=== PATIENT | male | born 1955 | race Caucasian/White ===

== ENCOUNTER 2018-02-11 10:48 | Inpatient (IN) | payer OTHER ==
[~2018-02-11] VITALS: Ht 172.7 cm; Wt 110.0 kg
[~2018-02-11 10:48] MED LIST: FLO0.4C PO; IBUP-1986 PO; LACT1CAP65 PO; LISI-604 PO; MULT-38 PO; POLY119P2 PO
[2018-02-11] MEDS: diatr meglu/diatrizoate 30ml oral sol.-(3 dose) bottle PO SCH ×3 (11:40→12:30)
[2018-02-11 12:07] LABS: BASOPHILS % (AUTO) 0 % (0-1); EOSINOPHILS % (AUTO) 0 % (0-6); HEMATOCRIT 44.5 % (42.0-52.0); HEMOGLOBIN 14.2 g/dl (14.0-17.9); LYMPHOCYTES # (AUTO) 0.6 X10'3 (1.1-4.8); LYMPHOCYTES % (AUTO) 4.2 % (21-51); MEAN CORPUSCULAR HEMOGLOBIN 28.6 PG (27.0-31.0); MEAN CORPUSCULAR HGB CONC 31.9 % (33.0-36.5); MEAN CORPUSCULAR VOLUME 89.5 FL (78-98); MEAN PLATELET VOLUME 10.4 FL (7.4-10.4); MONOCYTES # (AUTO) 1.5 X10'3 (0-0.9); MONOCYTES % (AUTO) 11.2 % (2-12); NEUTROPHILS # (AUTO) 11.7 X10'3 (1.8-7.7); NEUTROPHILS % (AUTO) 84.6 % (42-75); PLATELET COUNT 221 X10'3 (140-440); RED BLOOD COUNT 4.98 X10'6 (4.70-6.10); RED CELL DISTRIBUTION WIDTH 15.2 % (11.5-14.5); WHITE BLOOD COUNT 13.9 X10'3 (4.5-11.0)
[2018-02-11 12:23] LABS: INR 1.1 INR; PARTIAL THROMBOPLASTIN TIME 29 SECONDS (22-32); PROTHROMBIN TIME 11.4 SECONDS (9.0-12.0)
[2018-02-11 12:31] LABS: ALANINE AMINOTRANSFERASE 24 U/L (12-78); ALBUMIN 2.4 G/DL (3.4-5.0); ALBUMIN/GLOBULIN RATIO 0.5 (1.1-1.5); ALKALINE PHOSPHATASE 99 IU/L (46-116); ANION GAP 9 (8-16); ASPARTATE AMINO TRANSFERASE 19 U/L (10-37); BILIRUBIN,TOTAL 0.7 MG/DL (0.1-1.0); BLOOD UREA NITROGEN 22 MG/DL (7-18); BUN/CREATININE RATIO 16.2 (5.4-32.0); CALCIUM 9.3 MG/DL (8.5-10.1); CHLORIDE 102 MMOL/L (99-107); CREATININE 1.36 MG/DL (0.60-1.10); GLUCOSE 135 MG/DL (70-104); MAGNESIUM 2.1 MG/DL (1.5-2.4); POTASSIUM 3.3 MMOL/L (3.5-5.1); SODIUM 139 MMOL/L (135-145); eGFR 53 ML/MIN
[2018-02-11] MEDS ORDERED: iohexol 300mg/ml 100ml inj. ONE (12:39)
[2018-02-11] MEDS ORDERED: diatrozoate meglu/diatrozoate sod (37% iodine) 120ML oral solution ONE (12:39)
[2018-02-11] MEDS ORDERED: CefTRIAXone 2gm/D5W 50ml 50 ML IV ONE (13:15)
[2018-02-11] MEDS ORDERED: normal saline 1000ML IV soln IV ONE (13:15)
[2018-02-11 13:32] LABS: CLARITY,URINE SLIGHTLY CLOUDY (Clear); COLOR,URINE YELLOW (Yellow); GLUCOSE, URINE NEGATIVE (Neg); KETONES,URINE NEGATIVE (Neg); LEUKOCYTE ESTERASE ,URINE MODERATE (Neg); NITRITES, URINE NEGATIVE (Neg); OCCULT BLOOD,URINE MODERATE (Neg); PROTEIN,URINE 100 mg/dl (Neg)
[2018-02-11 13:41] LABS: UA COLLECTION TYPE CLN CATCH MIDSTREAM
[2018-02-11 13:45] LABS: MUCUS STRANDS FEW /LPF (Neg); SQUAMOUS EPITHELIAL CELL,UR MODERATE /LPF (FEW); WBC,URINE 50-100 /HPF (0-4)
[2018-02-11 13:46] LABS: BACTERIA,URINE FEW /HPF (Neg)
[2018-02-11] MEDS ORDERED: acetaminophen 325mg tablet PO PRN ×2 (14:10)
[2018-02-11] MEDS ORDERED: magnesium 4gm in 100ml NS 100 ML IV PRN (14:10)
[2018-02-11] MEDS ORDERED: potassium Cl 20 mEq SR tablet PO PRN (14:10)
[2018-02-11] MEDS ORDERED: magnesium Cl slow-release 64mg tablet PO PRN (14:10)
[2018-02-11] MEDS ORDERED: CefTRIAXone/D5W-Rocephin 1gm 50 ML IV SCH (14:10)
[2018-02-11] MEDS ORDERED: magnesium hydroxide 30ml (MOM) UD suspension PO PRN (14:10)
[2018-02-11] MEDS ORDERED: ondansetron/PF 4mg/2ml inj IV PRN (14:10)
[2018-02-11] MEDS ORDERED: potassium Cl 40MEQ/NS 500ml 500 ML IV PRN ×2 (14:10)
[2018-02-11] MEDS ORDERED: magnesium 1gm/100ml D5W IVPB 100 ML IV PRN (14:10)
[2018-02-11] MEDS ORDERED: mag hydrox/Alum hydrox/simeth 30ml oral suspension PO PRN (14:10)
[2018-02-11] MEDS: normal saline 1000ml 1,000 ML IV SCH ×2 (15:28→22:57)
[2018-02-11] MEDS: heparin, porcine 5000 units/ml vial SQ SCH (20:10)
[2018-02-11] MEDS ORDERED: temazepam 15mg capsule PO PRN (21:00)
[2018-02-11 23:00] VITALS: BP 150/113
[2018-02-12 05:44] LABS: BASOPHILS % (AUTO) 0 % (0-1); EOSINOPHILS # (AUTO) 0.2 X10'3 (0-0.9); EOSINOPHILS % (AUTO) 1.7 % (0-6); HEMATOCRIT 37.8 % (42.0-52.0); HEMOGLOBIN 12.2 g/dl (14.0-17.9); LYMPHOCYTES # (AUTO) 0.9 X10'3 (1.1-4.8); LYMPHOCYTES % (AUTO) 7.6 % (21-51); MEAN CORPUSCULAR HEMOGLOBIN 28.7 PG (27.0-31.0); MEAN CORPUSCULAR HGB CONC 32.4 % (33.0-36.5); MEAN CORPUSCULAR VOLUME 88.5 FL (78-98); MEAN PLATELET VOLUME 10.8 FL (7.4-10.4); MONOCYTES # (AUTO) 1.4 X10'3 (0-0.9); MONOCYTES % (AUTO) 11.8 % (2-12); NEUTROPHILS # (AUTO) 9.4 X10'3 (1.8-7.7); NEUTROPHILS % (AUTO) 78.9 % (42-75); PLATELET COUNT 191 X10'3 (140-440); RED BLOOD COUNT 4.27 X10'6 (4.70-6.10); RED CELL DISTRIBUTION WIDTH 15.2 % (11.5-14.5); WHITE BLOOD COUNT 11.9 X10'3 (4.5-11.0)
[2018-02-12 06:05] LABS: ALANINE AMINOTRANSFERASE 29 U/L (12-78); ALBUMIN 1.9 G/DL (3.4-5.0); ALBUMIN/GLOBULIN RATIO 0.5 (1.1-1.5); ALKALINE PHOSPHATASE 86 IU/L (46-116); ANION GAP 7 (8-16); ASPARTATE AMINO TRANSFERASE 19 U/L (10-37); BILIRUBIN,TOTAL 0.5 MG/DL (0.1-1.0); BLOOD UREA NITROGEN 19 MG/DL (7-18); BUN/CREATININE RATIO 17.4 (5.4-32.0); CALCIUM 8.4 MG/DL (8.5-10.1); CHLORIDE 106 MMOL/L (99-107); CHOL/HDL RATIO 6.5 (0.00-4.99); CHOLESTEROL 111 MG/DL (0-200); CREATININE 1.09 MG/DL (0.60-1.10); GLUCOSE 151 MG/DL (70-104); HDL CHOLESTEROL 17 MG/DL (35-60); LDL CHOLESTEROL 78 MG/DL (50-100); MAGNESIUM 1.7 MG/DL (1.5-2.4); POTASSIUM 3.3 MMOL/L (3.5-5.1); SODIUM 139 MMOL/L (135-145); TOTAL PROTEIN 5.9 G/DL (6.4-8.2); TRIGLYCERIDES 70 MG/DL (20-135); eGFR 69 ML/MIN
[2018-02-12 07:29] LABS: LARGE PLATELETS FEW; PLATELET ESTIMATE NORMAL
[2018-02-12] MEDS: potassium Cl 20 mEq SR tablet PO PRN ×3 (07:35→16:16)
[2018-02-12] MEDS: heparin, porcine 5000 units/ml vial SQ SCH ×2 (07:35→19:10)
[2018-02-12 07:46] VITALS: BP 120/72
[2018-02-12] MEDS ORDERED: CefTRIAXone/D5W-Rocephin 1gm 50 ML IV SCH (08:00)
[2018-02-12] MEDS ORDERED: K and/or MAG REPLACEMENT MC SCH (08:00)
[2018-02-12] MEDS ORDERED: levoFLOXACIN-Levaquin 250mg/D5 50 ML IV SCH (08:00)
[2018-02-12] MEDS: normal saline 1000ml 1,000 ML IV SCH ×2 (09:33→20:21)
[2018-02-12 11:55] VITALS: BP 122/64
[2018-02-12 18:00] VITALS: BP 151/103
[2018-02-12 18:13] LABS: C DIFF ANTIGEN NEGATIVE (NEGATIVE); C DIFF SPECIMEN=DIARRHEA? ACCEPTABLE; C DIFFICILE TOXINS A&B NEGATIVE (Neg)
[2018-02-12] MEDS ORDERED: vancomycin/NS 1 GM ADD-VANTAGE 250 ML IV ONE (18:40)
[2018-02-12] MEDS ORDERED: cefepime 1GM/NS ADD-VANTAGE 100 ML IV ONE (18:40)
[2018-02-12] MEDS ORDERED: vancomycin/NS 1 GM ADD-VANTAGE 250 ML X 1 DOSE IV ONE ×2 (20:30→22:00)
[2018-02-13] VITALS: BP 140/80
[2018-02-13] MEDS: normal saline 1000ml 1,000 ML IV SCH (06:07)
[2018-02-13 07:03] LABS: BASOPHILS % (AUTO) 0.4 % (0-1); EOSINOPHILS # (AUTO) 0.4 X10'3 (0-0.9); EOSINOPHILS % (AUTO) 3.6 % (0-6); HEMATOCRIT 38.4 % (42.0-52.0); HEMOGLOBIN 12.4 g/dl (14.0-17.9); LYMPHOCYTES % (AUTO) 9.6 % (21-51); MEAN CORPUSCULAR HEMOGLOBIN 28.5 PG (27.0-31.0); MEAN CORPUSCULAR HGB CONC 32.2 % (33.0-36.5); MEAN CORPUSCULAR VOLUME 88.5 FL (78-98); MEAN PLATELET VOLUME 11.2 FL (7.4-10.4); MONOCYTES # (AUTO) 0.9 X10'3 (0-0.9); MONOCYTES % (AUTO) 8.3 % (2-12); NEUTROPHILS # (AUTO) 8.5 X10'3 (1.8-7.7); NEUTROPHILS % (AUTO) 78.1 % (42-75); PLATELET COUNT 215 X10'3 (140-440); RED BLOOD COUNT 4.34 X10'6 (4.70-6.10); RED CELL DISTRIBUTION WIDTH 15.1 % (11.5-14.5); WHITE BLOOD COUNT 10.8 X10'3 (4.5-11.0)
[2018-02-13 07:27] LABS: ALANINE AMINOTRANSFERASE 26 U/L (12-78); ALBUMIN/GLOBULIN RATIO 0.5 (1.1-1.5); ALKALINE PHOSPHATASE 121 IU/L (46-116); ANION GAP 10 (8-16); ASPARTATE AMINO TRANSFERASE 22 U/L (10-37); BILIRUBIN,TOTAL 0.4 MG/DL (0.1-1.0); BLOOD UREA NITROGEN 19 MG/DL (7-18); BUN/CREATININE RATIO 19.8 (5.4-32.0); CALCIUM 8.6 MG/DL (8.5-10.1); CHLORIDE 109 MMOL/L (99-107); CREATININE 0.96 MG/DL (0.60-1.10); GLUCOSE 113 MG/DL (70-104); MAGNESIUM 1.9 MG/DL (1.5-2.4); POTASSIUM 3.7 MMOL/L (3.5-5.1); SODIUM 143 MMOL/L (135-145); TOTAL CARBON DIOXIDE 23.9 MMOL/L (24-32); TOTAL PROTEIN 6.1 G/DL (6.4-8.2); eGFR 80 ML/MIN
[2018-02-13 08:45] LABS: LARGE PLATELETS FEW; PLATELET ESTIMATE NORMAL
== END 2018-02-13 07:10 | disposition left against medical advice (07) | DRG 871 ==
LOC: ER 10:51 → EEVIPCON 14:07 → ED HOLD 14:07 → EDBEDREQ 20:26 → SUR 3N 22:40
PROVIDERS: ADMIT Family Medicine; ATTEND Family Medicine
PROC: BW211ZZ Computerized Tomography (CT Scan) of Abdomen and Pelvis using Low Osmolar Contrast (ICD-10-PCS; principal; 2018-02-11)
DX: A41.9 Sepsis, unspecified organism (principal); J18.1 Lobar pneumonia, unspecified organism; N13.6 Pyonephrosis; N17.9 Acute kidney failure, unspecified; Z53.21 Procedure and treatment not carried out due to patient leaving prior to being seen by health care provider; N21.0 Calculus in bladder; E87.6 Hypokalemia; I25.10 Atherosclerotic heart disease of native coronary artery without angina pectoris; Z88.1 Allergy status to other antibiotic agents; Z79.899 Other long term (current) drug therapy; Z91.19 Patient's noncompliance with other medical treatment and regimen; Z56.0 Unemployment, unspecified; Z87.442 Personal history of urinary calculi
CPT/HCPCS: 36415; 71045; 74177; 80053; 80061; 81001; 83036; 83605; 83735; 84145; 85025; 85610; 85730; 86885; 86900; 86901; 87040; 87070; 87077; 87088; 87186; 87324; 87449; 93005; 96365; 99285; G0378; J0692; J0696; J1644; J3370; J7030; Q9963; Q9967

== ENCOUNTER 2018-03-06 10:35 | Emergency (ER) | payer MEDICAID, OTHER ==
[~2018-03-06] VITALS: Ht 172.7 cm; Wt 104.0 kg
[~2018-03-06 10:35] MED LIST changes: -FLO0.4C PO; -LISI-604 PO
[2018-03-06] MEDS ORDERED: methylPREDNISolone sod succ 125mg/2ml vial IV ONE (11:40)
[2018-03-06] MEDS ORDERED: ipratropium/albuterol 3ml nebule NEB ONE (11:40)
[2018-03-06 11:52] LABS: BASOPHILS % (AUTO) 0.3 % (0-1); EOSINOPHILS # (AUTO) 0.1 X10'3 (0-0.9); EOSINOPHILS % (AUTO) 1.2 % (0-6); HEMATOCRIT 46.3 % (42.0-52.0); HEMOGLOBIN 15.1 g/dl (14.0-17.9); LYMPHOCYTES # (AUTO) 0.8 X10'3 (1.1-4.8); LYMPHOCYTES % (AUTO) 10.8 % (21-51); MEAN CORPUSCULAR HEMOGLOBIN 28.8 PG (27.0-31.0); MEAN CORPUSCULAR HGB CONC 32.6 % (33.0-36.5); MEAN CORPUSCULAR VOLUME 88.3 FL (78-98); MEAN PLATELET VOLUME 10.1 FL (7.4-10.4); MONOCYTES # (AUTO) 0.4 X10'3 (0-0.9); MONOCYTES % (AUTO) 5.2 % (2-12); NEUTROPHILS % (AUTO) 82.5 % (42-75); PLATELET COUNT 206 X10'3 (140-440); RED BLOOD COUNT 5.24 X10'6 (4.70-6.10); WHITE BLOOD COUNT 7.3 X10'3 (4.5-11.0)
[2018-03-06 12:15] LABS: ALANINE AMINOTRANSFERASE 22 U/L (12-78); ALBUMIN/GLOBULIN RATIO 0.7 (1.1-1.5); ALKALINE PHOSPHATASE 84 IU/L (46-116); ANION GAP 8 (8-16); ASPARTATE AMINO TRANSFERASE 26 U/L (10-37); BILIRUBIN,TOTAL 0.5 MG/DL (0.1-1.0); BLOOD UREA NITROGEN 22 MG/DL (7-18); BUN/CREATININE RATIO 19.8 (5.4-32.0); CALCIUM 9.2 MG/DL (8.5-10.1); CHLORIDE 99 MMOL/L (99-107); CREATININE 1.11 MG/DL (0.60-1.10); GLUCOSE 117 MG/DL (70-104); POTASSIUM 3.4 MMOL/L (3.5-5.1); SODIUM 135 MMOL/L (135-145); TOTAL CARBON DIOXIDE 27.8 MMOL/L (24-32); TOTAL PROTEIN 7.4 G/DL (6.4-8.2); eGFR 68 ML/MIN
[2018-03-06 12:21] LABS: MAGNESIUM 1.7 MG/DL (1.5-2.4)
[2018-03-06] MEDS ORDERED: POTA20TA19 PO (12:41)
[2018-03-06] MEDS ORDERED: DOXY100C43 PO (12:41)
[2018-03-06] MEDS ORDERED: FURO40TA4 PO (12:41)
[2018-03-06] MEDS ORDERED: PRED20TA PO (12:41)
[2018-03-06] MEDS ORDERED: furosemide 10 MG/1 ML 10ml inj IV ONE (12:45)
[2018-03-06] MEDS ORDERED: CefTRIAXone 2gm/D5W 50ml 50 ML IV ONE (12:45)
[2018-03-06] MEDS ORDERED: furosemide 40mg/4ml inj IV ONE (12:45)
[2018-03-06] MEDS ORDERED: potassium Cl 20 mEq SR tablet PO STA (13:06)
[2018-03-06 13:43] VITALS: BP 127/80
== END 2018-03-06 13:45 | disposition home or self-care (01) ==
LOC: ER 10:36
DX: J40 Bronchitis, not specified as acute or chronic (principal); I25.10 Atherosclerotic heart disease of native coronary artery without angina pectoris; Z56.0 Unemployment, unspecified; Z98.890 Other specified postprocedural states; Z88.1 Allergy status to other antibiotic agents; Z79.899 Other long term (current) drug therapy
CPT/HCPCS: 36415; 71045; 80053; 83605; 83735; 83880; 84145; 84484; 85025; 87040; 93005; 94640; 94760; 96365; 96375; 99284; J0696; J1940; J2930

== ENCOUNTER 2018-05-19 04:12 | Inpatient (IN) | payer MEDICAID, OTHER ==
[~2018-05-19] VITALS: Ht 172.7 cm; Wt 101.5 kg
[~2018-05-19 04:12] MED LIST changes: +FURO40TA4 PO
[2018-05-19 04:40] LABS: BASOPHILS % (AUTO) 0.5 % (0-1); EOSINOPHILS # (AUTO) 0.5 X10'3 (0-0.9); EOSINOPHILS % (AUTO) 5.5 % (0-6); HEMATOCRIT 37.3 % (42.0-52.0); LYMPHOCYTES # (AUTO) 1.2 X10'3 (1.1-4.8); MEAN CORPUSCULAR HEMOGLOBIN 27.6 PG (27.0-31.0); MEAN CORPUSCULAR HGB CONC 32.2 g/dL (33.0-36.5); MEAN CORPUSCULAR VOLUME 85.8 FL (78-98); MEAN PLATELET VOLUME 8.9 FL (7.4-10.4); MONOCYTES # (AUTO) 0.8 X10'3 (0-0.9); MONOCYTES % (AUTO) 8.5 % (2-12); NEUTROPHILS # (AUTO) 6.5 X10'3 (1.8-7.7); NEUTROPHILS % (AUTO) 72.5 % (42-75); PLATELET COUNT 255 X10'3 (140-440); RED BLOOD COUNT 4.34 X10'6 (4.70-6.10); RED CELL DISTRIBUTION WIDTH 16.7 % (11.5-14.5); WHITE BLOOD COUNT 8.9 X10'3 (4.5-11.0)
[2018-05-19] MEDS ORDERED: ipratropium/albuterol 3ml nebule NEB ONE (04:50)
[2018-05-19 04:52] LABS: ALANINE AMINOTRANSFERASE 28 U/L (12-78); ALBUMIN 2.7 G/DL (3.4-5.0); ALBUMIN/GLOBULIN RATIO 0.7 (1.1-1.5); ALKALINE PHOSPHATASE 84 IU/L (46-116); ANION GAP 7 (8-16); ASPARTATE AMINO TRANSFERASE 26 U/L (10-37); BILIRUBIN,TOTAL 0.6 MG/DL (0.1-1.0); BLOOD UREA NITROGEN 31 MG/DL (7-18); BUN/CREATININE RATIO 22.1 (5.4-32.0); CALCIUM 8.8 MG/DL (8.5-10.1); CHLORIDE 106 MMOL/L (99-107); GLUCOSE 159 MG/DL (70-104); POTASSIUM 3.5 MMOL/L (3.5-5.1); SODIUM 139 MMOL/L (135-145); TOTAL CARBON DIOXIDE 25.8 MMOL/L (24-32); TOTAL PROTEIN 6.4 G/DL (6.4-8.2); eGFR 52 ML/MIN
[2018-05-19 05:05] LABS: TROPONIN I 0.08 NG/ML (0.0-0.05)
[2018-05-19 05:24] LABS: CLARITY,URINE SLIGHTLY CLOUDY (Clear); COLOR,URINE Yellow (Yellow); GLUCOSE, URINE Negative (Neg); KETONES,URINE Negative (Neg); PROTEIN,URINE 100 mg/dl (Neg); UA COLLECTION TYPE CLN CATCH MIDSTREAM
[2018-05-19 05:25] LABS: LEUKOCYTE ESTERASE ,URINE LARGE (Neg); NITRITES, URINE NEGATIVE (Neg); OCCULT BLOOD,URINE MODERATE (Neg); UROBILINOGEN,URINE 0.2 E.U/dL (0.2-1.0)
[2018-05-19 05:34] LABS: BACTERIA,URINE 2+ /HPF (Neg); MUCUS STRANDS NONE SEEN /LPF (Neg); SQUAMOUS EPITHELIAL CELL,UR MODERATE /LPF (FEW); WBC,URINE TNTC /HPF (0-4)
[2018-05-19] MEDS ORDERED: aspirin 81mg tab.chew PO ONE (05:35)
[2018-05-19] MEDS ORDERED: CefTRIAXone 2gm/D5W 50ml 50 ML IV ONE (05:35)
--- NOTE | 2018-05-19 05:38 | NUR ---
Dr. Bartlett notified of elevated troponin level.
[2018-05-19] MEDS ORDERED: heparin 25,000 UNIT/250ml bag 250 ML IV SCH ×2 (05:58→07:18)
[2018-05-19] MEDS ORDERED: heparin 10,000 units/1 ML INJ IV ONE ×2 (06:00→07:20)
[2018-05-19] MEDS ORDERED: heparin 10,000 units/1 ML INJ IV PRN ×2 (06:00→07:20)
--- NOTE | 2018-05-19 06:01 | NUR ---
Patient and updated on POC.
--- NOTE | 2018-05-19 06:02 | NUR ---
Heparin drip order noted. No PT/PTT available. Lab contacted to run blue top that was previously collected and will initiate as soon as lab values are available.
[2018-05-19 06:10] LABS: INR 1.2 INR; PARTIAL THROMBOPLASTIN TIME 25 SECONDS (22-32); PROTHROMBIN TIME 11.8 SECONDS (9.0-12.0)
[2018-05-19] MEDS ORDERED: NO HOME MEDS (06:23)
--- NOTE | 2018-05-19 06:51 | NUR ---
having trouble with IV, new IV needs to be started and pt is a hard stick. second nurse is trying now. heparin drip is can not be started until new IV is started
--- NOTE | 2018-05-19 07:03 | NUR ---
NEW IV STARTED, HEPARIN DRIP STARTED
[2018-05-19] MEDS ORDERED: magnesium Cl slow-release 64mg tablet PO PRN (07:20)
[2018-05-19] MEDS ORDERED: mag hydrox/Alum hydrox/simeth 30ml oral suspension PO PRN (07:20)
[2018-05-19] MEDS ORDERED: potassium Cl 40MEQ/NS 500ml 500 ML IV PRN ×2 (07:20)
[2018-05-19] MEDS ORDERED: regadenoson 0.4mg/5ml syringe IV ONE ×2 (07:20→09:32)
[2018-05-19] MEDS ORDERED: magnesium hydroxide 30ml (MOM) UD suspension PO PRN (07:20)
[2018-05-19] MEDS ORDERED: potassium Cl 20 mEq SR tablet PO PRN ×2 (07:20)
[2018-05-19] MEDS ORDERED: ondansetron/PF 4mg/2ml inj IV PRN (07:20)
[2018-05-19] MEDS ORDERED: morphine 4 MG/ML inj SYRINge IV PRN ×2 (07:20)
[2018-05-19] MEDS ORDERED: aminophylline 250mg/10ml inj. IV PRN (07:20)
[2018-05-19] MEDS ORDERED: nitroGLYCERIN 0.4mg SUBLingual tab SL PRN ×2 (07:20)
[2018-05-19] MEDS ORDERED: metoprolol tartrate 1mg/ml inj IV PRN (07:20)
[2018-05-19] MEDS ORDERED: magnesium 4gm in 100ml NS 100 ML IV PRN (07:20)
[2018-05-19] MEDS ORDERED: acetaminophen 325mg tablet PO PRN ×2 (07:20)
[2018-05-19] MEDS ORDERED: magnesium 2GM in 50ml NS 50 ML IV PRN (07:20)
[2018-05-19] MEDS ORDERED: ACET-2615 PO (07:21)
[2018-05-19] MEDS ORDERED: AMOX500C2 PO (07:21)
[2018-05-19] MEDS ORDERED: IBUP-1984 PO (07:21)
[2018-05-19 07:58] LABS: BASOPHILS # (AUTO) 0.1 X10'3 (0-0.2); BASOPHILS % (AUTO) 1.2 % (0-1); EOSINOPHILS # (AUTO) 0.5 X10'3 (0-0.9); EOSINOPHILS % (AUTO) 5.1 % (0-6); HEMATOCRIT 36.7 % (42.0-52.0); HEMOGLOBIN 11.7 g/dl (14.0-17.9); LYMPHOCYTES # (AUTO) 1.3 X10'3 (1.1-4.8); LYMPHOCYTES % (AUTO) 12.5 % (21-51); MEAN CORPUSCULAR HEMOGLOBIN 27.4 PG (27.0-31.0); MEAN CORPUSCULAR HGB CONC 31.9 g/dL (33.0-36.5); MEAN CORPUSCULAR VOLUME 85.9 FL (78-98); MEAN PLATELET VOLUME 9.2 FL (7.4-10.4); MONOCYTES % (AUTO) 9.2 % (2-12); NEUTROPHILS # (AUTO) 7.5 X10'3 (1.8-7.7); PLATELET COUNT 301 X10'3 (140-440); RED BLOOD COUNT 4.27 X10'6 (4.70-6.10); RED CELL DISTRIBUTION WIDTH 16.6 % (11.5-14.5); WHITE BLOOD COUNT 10.4 X10'3 (4.5-11.0)
[2018-05-19] MEDS ORDERED: aspirin 81mg tablet.DR PO SCH (08:00)
[2018-05-19] MEDS: K and/or MAG REPLACEMENT MC SCH (08:00)
[2018-05-19] MEDS: furosemide 40mg/4ml inj IV SCH ×2 (08:20→22:02)
[2018-05-19] MEDS ORDERED: protamine sulf. 10mg/ml inj. IV ONE (09:30)
[2018-05-19] MEDS ORDERED: tranexamic acid 100mg/ml inj. IV ONE (09:30)
[2018-05-19] MEDS ORDERED: aminophylline inj. 10 ML IV ONE (09:32)
[2018-05-19] MEDS: normal saline 1000ml 1,000 ML IV ONE ×2 (09:35→10:00)
--- NOTE | 2018-05-19 09:36 | NUR ---
PT STARTED TO HAVE [facility] BLEED. 2 LARGE CLOTS FOUND IN DIAPER. ER MD AWARE, HOSP AWARE, GI CONSULTED. LABS DRAWN T/S. HEPARIN STOPPED MEDS ORDERED FOR HEPARIN REVERSAL
--- NOTE | 2018-05-19 09:39 | NUR ---
GOING TO HOLD ON TRANSFERRING PT TO PCU UNTIL [facility] INVESTIGATED
[2018-05-19] MEDS ORDERED: [UNRECOGNIZED DRUG - OTHER] IV ONE (09:40)
[2018-05-19] MEDS ORDERED: PROTAMINE IV ONE (09:40)
--- NOTE | 2018-05-19 09:41 | NUR ---
active bleeding from rectum, made aware, stopping heparin, giving patient txa and protamine sulfate, spoke with Pharmacy, they are mixing the drugs now, should be ready in 10-15minutes
[2018-05-19] MEDS ORDERED: MULT-269 PO (09:51)
[2018-05-19] MEDS ORDERED: FERR324T4 PO (09:59)
[2018-05-19] MEDS ORDERED: tranexamic acid inj. 1,100 MG in normal saline 100ml IV soln 100 ML IV ONE (10:00)
--- NOTE | 2018-05-19 10:11 | NUR ---
1000 bolus not given per hospitalist request
--- NOTE | 2018-05-19 12:05 | NUR ---
Patient arrived to U 3027B. Patient ambulated from ED gurney to bed. VS: T: 97.9 Ax, HR:93, RR: 20, 02: 94 room air, BP 146/95 (106) pain 0/10. Patient oriented to room and call light. In no acute distress. Will continue to monitor.
--- NOTE | 2018-05-19 14:41 | NUR ---
Paged Dr. Yin: PAGER ID: [phone] MESSAGE: Verito Jordan [phone]. RE: Crow Neil [id number]. FYI. Patient had bowel movement and 2 large clots noted. Copious eleni blood observed as well. Please advise.
[2018-05-19 15:00] VITALS: BP 145/99
--- NOTE | 2018-05-19 16:12 | NUR ---
Patient had 15 beat run of v-tach. Dr. Yin paged to notify. Patient asymptomatic. Will continue to monitor.
[2018-05-19] MEDS ORDERED: magnesium 2GM in 50ml NS 50 ML IV ONE (17:00)
[2018-05-19] MEDS ORDERED: iohexol 350MG/ML 100ml bottle IV ONE (17:48)
[2018-05-19 18:02] LABS: URINE AMPHETAMINE SCREEN POSITIVE (Neg); URINE BARBITUATE SCREEN NEGATIVE (Neg); URINE BENZODIAZEPINES SCREEN NEGATIVE (Neg); URINE CANNABINOID SCREEN NEGATIVE (Neg); URINE COCAINE SCREEN NEGATIVE (Neg); URINE METHADONE SCREEN NEGATIVE (Neg); URINE OPIATE SCREEN NEGATIVE (Neg); URINE PHENCYCLIDINE SCREEN NEGATIVE (Neg)
--- NOTE | 2018-05-19 18:19 | NUR ---
Problems reprioritized. Patient report given, questions answered & plan of care reviewed with Diana RN.
--- NOTE | 2018-05-19 18:19 | NUR ---
Patient in room PCU 3027. I have received report from Verito ACUÑA and had the opportunity to ask questions and assume patient care. Pt was in CT during beginning of report. He arrived shortly after. Pleasant man. 2 20g PIVs; hard stick. Last bloodly BM was at [address] No belly pain with palpation. Mag replacement is finishing as it was paused. Mag replacement for 15 beats Vtach on day shift.
[2018-05-19 19:00] VITALS: BP 144/96
[2018-05-19] MEDS ORDERED: temazepam 15mg capsule PO PRN (21:00)
[2018-05-19 22:00] VITALS: BP 134/93
[2018-05-19] MEDS: carVEDilol 3.125mg tablet PO SCH (22:02)
[2018-05-20] VITALS (14 sets, daily range): BP systolic 112–142; BP diastolic 69–99
[2018-05-20 06:22] LABS: BASOPHILS # (AUTO) 0.1 X10'3 (0-0.2); BASOPHILS % (AUTO) 0.9 % (0-1); EOSINOPHILS # (AUTO) 0.6 X10'3 (0-0.9); HEMATOCRIT 34.7 % (42.0-52.0); HEMOGLOBIN 11.1 g/dl (14.0-17.9); LYMPHOCYTES # (AUTO) 1.2 X10'3 (1.1-4.8); LYMPHOCYTES % (AUTO) 13.2 % (21-51); MEAN CORPUSCULAR HEMOGLOBIN 27.4 PG (27.0-31.0); MEAN CORPUSCULAR VOLUME 85.6 FL (78-98); MEAN PLATELET VOLUME 8.9 FL (7.4-10.4); MONOCYTES # (AUTO) 0.8 X10'3 (0-0.9); MONOCYTES % (AUTO) 8.1 % (2-12); NEUTROPHILS # (AUTO) 6.7 X10'3 (1.8-7.7); NEUTROPHILS % (AUTO) 71.8 % (42-75); PLATELET COUNT 302 X10'3 (140-440); RED BLOOD COUNT 4.06 X10'6 (4.70-6.10); RED CELL DISTRIBUTION WIDTH 16.7 % (11.5-14.5); WHITE BLOOD COUNT 9.4 X10'3 (4.5-11.0)
--- NOTE | 2018-05-20 06:30 | NUR ---
Patient in room PCU 3027. I have received report from Diana ACUÑA and had the opportunity to ask questions and assume patient care. Patient awake in bed. In no acute distress. will continue to monitor.
[2018-05-20 06:38] LABS: ALBUMIN 2.6 G/DL (3.4-5.0); ANION GAP 9 (8-16); BLOOD UREA NITROGEN 25 MG/DL (7-18); BUN/CREATININE RATIO 19.4 (5.4-32.0); CALCIUM 8.9 MG/DL (8.5-10.1); CHLORIDE 109 MMOL/L (99-107); CHOL/HDL RATIO 5.2 (0.00-4.99); CHOLESTEROL 109 MG/DL (0-200); CREATININE 1.29 MG/DL (0.60-1.10); GLUCOSE 121 MG/DL (70-104); HDL CHOLESTEROL 21 MG/DL (35-60); LDL CHOLESTEROL 81 MG/DL (50-100); MAGNESIUM 2.2 MG/DL (1.5-2.4); POTASSIUM 3.6 MMOL/L (3.5-5.1); SODIUM 147 MMOL/L (135-145); TOTAL CARBON DIOXIDE 29.1 MMOL/L (24-32); TRIGLYCERIDES 62 MG/DL (20-135); eGFR 57 ML/MIN
[2018-05-20] MEDS: K and/or MAG REPLACEMENT MC SCH (08:00)
[2018-05-20] MEDS ORDERED: aminophylline inj. 10 ML IV ONE (08:43)
[2018-05-20] MEDS ORDERED: regadenoson 0.4mg/5ml syringe IV ONE (08:43)
[2018-05-20] MEDS ORDERED: regadenoson 0.4mg/5ml syringe IV PRN (08:55)
[2018-05-20] MEDS ORDERED: aminophylline 250mg/10ml inj. IV PRN (08:55)
[2018-05-20] MEDS: CefTRIAXone/D5W-Rocephin 1gm 50 ML IV SCH (10:04)
[2018-05-20] MEDS: lisinopril 2.5mg tablet PO SCH (10:08)
[2018-05-20] MEDS: multivitamins, therapeutics tablet PO SCH (10:08)
[2018-05-20] MEDS: furosemide 40mg/4ml inj IV SCH (10:08)
[2018-05-20] MEDS: carVEDilol 3.125mg tablet PO SCH ×2 (10:08→23:24)
--- NOTE | 2018-05-20 12:02 | NUR ---
Notified by [facility] that patient had burst of A-fib. Dr. Yin notified. New order for 12-lead EKG.
--- NOTE | 2018-05-20 12:16 | NUR ---
Paged Dr. Yin: PAGER ID: [phone] MESSAGE: Verito Jordan [phone] RE: Crow Neil [id number]. Patient 12 lead EKG completed.
--- NOTE | 2018-05-20 18:30 | NUR ---
Problems reprioritized. Patient report given, questions answered & plan of care reviewed with Diana RN.
[2018-05-20] MEDS: lactobacillus rhamnosus 10,000 MMU CELLS/CAPSULE PO SCH (23:24)
[2018-05-21 03:00] VITALS: BP 125/83
[2018-05-21 05:11] LABS: BASOPHILS # (AUTO) 0.1 X10'3 (0-0.2); EOSINOPHILS # (AUTO) 0.5 X10'3 (0-0.9); EOSINOPHILS % (AUTO) 5.3 % (0-6); HEMATOCRIT 31.4 % (42.0-52.0); LYMPHOCYTES # (AUTO) 1.3 X10'3 (1.1-4.8); LYMPHOCYTES % (AUTO) 14.8 % (21-51); MEAN CORPUSCULAR HEMOGLOBIN 27.4 PG (27.0-31.0); MEAN CORPUSCULAR VOLUME 85.6 FL (78-98); MONOCYTES # (AUTO) 0.9 X10'3 (0-0.9); MONOCYTES % (AUTO) 9.9 % (2-12); PLATELET COUNT 302 X10'3 (140-440); RED BLOOD COUNT 3.67 X10'6 (4.70-6.10); RED CELL DISTRIBUTION WIDTH 16.3 % (11.5-14.5); WHITE BLOOD COUNT 8.7 X10'3 (4.5-11.0)
[2018-05-21 05:21] LABS: ALBUMIN 2.5 G/DL (3.4-5.0); ANION GAP 7 (8-16); BLOOD UREA NITROGEN 25 MG/DL (7-18); BUN/CREATININE RATIO 18.4 (5.4-32.0); CALCIUM 8.8 MG/DL (8.5-10.1); CHLORIDE 104 MMOL/L (99-107); CREATININE 1.36 MG/DL (0.60-1.10); GLUCOSE 132 MG/DL (70-104); MAGNESIUM 2.1 MG/DL (1.5-2.4); POTASSIUM 3.3 MMOL/L (3.5-5.1); SODIUM 141 MMOL/L (135-145); TOTAL CARBON DIOXIDE 29.9 MMOL/L (24-32); eGFR 53 ML/MIN
[2018-05-21 06:00] VITALS: BP 140/94
--- NOTE | 2018-05-21 06:19 | NUR ---
Problems reprioritized. Patient report given, questions answered & plan of care reviewed with Kely ACUÑA.
--- NOTE | 2018-05-21 06:20 | NUR ---
Patient in room PCU 3027. I have received report from DOMENICO DOUGHERTY, and had the opportunity to ask questions and assume patient care.
[2018-05-21] MEDS: CefTRIAXone/D5W-Rocephin 1gm 50 ML IV SCH (07:48)
[2018-05-21] MEDS: multivitamins, therapeutics tablet PO SCH (07:48)
[2018-05-21] MEDS: carVEDilol 3.125mg tablet PO SCH (07:49)
[2018-05-21] MEDS: lactobacillus rhamnosus 10,000 MMU CELLS/CAPSULE PO SCH (07:49)
[2018-05-21 07:50] VITALS: BP_SYST 110
[2018-05-21] MEDS: lisinopril 2.5mg tablet PO SCH (07:50)
[2018-05-21] MEDS: K and/or MAG REPLACEMENT MC SCH (07:52)
[2018-05-21] MEDS ORDERED: furosemide 20MG tablet PO SCH (08:00)
--- NOTE | 2018-05-21 09:30 | NUR ---
INFORMED THAT TELE MONITOR IS MALFUNCTIONING- NOT BEING MONITORED
[2018-05-21] MEDS ORDERED: SPIR25TA PO (10:33)
[2018-05-21] MEDS ORDERED: COR3.125T PO (10:33)
[2018-05-21] MEDS ORDERED: ASPI-611 PO (10:33)
[2018-05-21] MEDS ORDERED: LISI2.5T2 PO (10:33)
[2018-05-21] MEDS ORDERED: NITR100C6 PO (10:33)
--- NOTE | 2018-05-21 11:30 | NUR ---
PROVIDED PATIENT WITH DISCHARGE INSTRUCTIONS WELL PRESCRIPTION INFORMATION, MADE AWARE THAT MEDICATIONS HAVE BEEN CALLED INTO [facility] INTO [place]. PATIENT AWARE IT IS RECOMMENDED THAT HE TAKE MEDICATIONS ORDERED AND FOLLOW UP WITH PRIMARY CARE DOCTOR WITHIN 2 WEEKS. IV REMOVED, CATHETER INTACT, MINIMAL BLEEDING CLEAN GAUZE APPLIED AND SECURED WITH TAPE. TELE MONITOR REMOVED AND RETURNED TO [facility]. PATIENT ACCOMPANIED DOWN WITH ALL HIS BELONGINGS WAITING OUTSIDE TO TAKE HIM HOME VIA PRIVATE VEHICLE. PATIENT DENIED ANY FURTHER QUESTIONS OR CONCERNS.
[2018-05-21] MEDS ORDERED: AMOX500C2 PO (11:32)
[2018-05-22] MEDS ORDERED: ACET-75 PO (15:48)
[2018-05-22] MEDS ORDERED: LISI2.5T2 PO (15:48)
[2018-05-22] MEDS ORDERED: SPIR50TA5 PO (15:48)
[2018-05-22] MEDS ORDERED: CARV3.12 PO (15:48)
[2018-05-22] MEDS ORDERED: ASPI-611 PO (15:48)
[2018-05-22] MEDS ORDERED: AMOX-100 PO (15:48)
== END 2018-05-21 11:51 | disposition home or self-care (01) | DRG 280 ==
LOC: ER 04:12 → ED HOLD 07:18 → PCU 3S 12:05
PROVIDERS: ADMIT Family Medicine; ATTEND Family Medicine
PROC: B32T1ZZ Computerized Tomography (CT Scan) of Left Pulmonary Artery using Low Osmolar Contrast (ICD-10-PCS; principal; 2018-05-19)
PROC: B3201ZZ Computerized Tomography (CT Scan) of Thoracic Aorta using Low Osmolar Contrast (ICD-10-PCS; 2018-05-19)
PROC: B32S1ZZ Computerized Tomography (CT Scan) of Right Pulmonary Artery using Low Osmolar Contrast (ICD-10-PCS; 2018-05-19)
PROC: 4A02XM4 Measurement of Cardiac Total Activity, External Approach (ICD-10-PCS; 2018-05-20)
PROC: 3E033HZ Introduction of Radioactive Substance into Peripheral Vein, Percutaneous Approach (ICD-10-PCS; 2018-05-20)
DX: I21.A1 Myocardial infarction type 2 (principal); I50.21 Acute systolic (congestive) heart failure; J18.9 Pneumonia, unspecified organism; I42.7 Cardiomyopathy due to drug and external agent; N13.6 Pyonephrosis; E87.0 Hyperosmolality and hypernatremia; B95.2 Enterococcus as the cause of diseases classified elsewhere; D64.9 Anemia, unspecified; N18.3 Chronic kidney disease, stage 3 (moderate); F15.10 Other stimulant abuse, uncomplicated; I25.10 Atherosclerotic heart disease of native coronary artery without angina pectoris; K64.8 Other hemorrhoids; Y92.89 Other specified places as the place of occurrence of the external cause; K44.9 Diaphragmatic hernia without obstruction or gangrene; K57.30 Diverticulosis of large intestine without perforation or abscess without bleeding; K59.00 Constipation, unspecified; K80.20 Calculus of gallbladder without cholecystitis without obstruction; Z87.442 Personal history of urinary calculi; Z91.19 Patient's noncompliance with other medical treatment and regimen; Z88.1 Allergy status to other antibiotic agents; Z79.899 Other long term (current) drug therapy; Z71.51 Drug abuse counseling and surveillance of drug abuser
CPT/HCPCS: 36415; 71045; 74174; 74176; 78452; 80048; 80053; 80061; 80305; 81001; 83036; 83735; 83880; 84153; 84443; 84484; 85025; 85610; 85730; 86885; 86900; 86901; 87070; 87077; 87088; 87186; 93005; 93017; 93306; 94640; 94760; 96365; 99285; A9500; G0378; J0280; J0696; J1644; J1940; J2720; J3475; J7030; J7060; Q9967

== ENCOUNTER 2018-05-22 13:39 | Inpatient (IN) | payer OTHER | END 2018-05-25 06:45 | disposition left against medical advice (07) | LOC: ER 13:39 → PCU 3S 05-23 13:20 → ED HOLD 17:08 ==

== ENCOUNTER 2018-06-02 12:45 | Emergency (ER) | payer MEDICAID, OTHER ==
[~2018-06-02] VITALS: Ht 170.2 cm; Wt 98.0 kg
[~2018-06-02 12:45] MED LIST changes: +ACET-75 PO; +AMOX-100 PO; +ASPI-611 PO; +CARV3.12 PO; +FERR324T4 PO; -FURO40TA4 PO; -IBUP-1986 PO; -LACT1CAP65 PO; +LISI2.5T2 PO; +MULT-269 PO; -MULT-38 PO; -POLY119P2 PO; +SPIR50TA5 PO
[2018-06-02 13:02] LABS: BASOPHILS # (AUTO) 0.1 X10'3 (0-0.2); BASOPHILS % (AUTO) 1.1 % (0-1); EOSINOPHILS # (AUTO) 0.1 X10'3 (0-0.9); EOSINOPHILS % (AUTO) 1.4 % (0-6); HEMATOCRIT 33.2 % (42.0-52.0); HEMOGLOBIN 10.4 g/dl (14.0-17.9); LYMPHOCYTES # (AUTO) 1.2 X10'3 (1.1-4.8); MEAN CORPUSCULAR HEMOGLOBIN 25.7 PG (27.0-31.0); MEAN CORPUSCULAR HGB CONC 31.2 g/dL (33.0-36.5); MEAN CORPUSCULAR VOLUME 82.4 FL (78-98); MEAN PLATELET VOLUME 9.5 FL (7.4-10.4); MONOCYTES # (AUTO) 0.9 X10'3 (0-0.9); MONOCYTES % (AUTO) 10.1 % (2-12); NEUTROPHILS # (AUTO) 6.6 X10'3 (1.8-7.7); NEUTROPHILS % (AUTO) 74.4 % (42-75); PLATELET COUNT 406 X10'3 (140-440); RED BLOOD COUNT 4.02 X10'6 (4.70-6.10); RED CELL DISTRIBUTION WIDTH 16.9 % (11.5-14.5); WHITE BLOOD COUNT 8.9 X10'3 (4.5-11.0)
[2018-06-02 13:19] LABS: ALANINE AMINOTRANSFERASE 116 U/L (12-78); ALBUMIN 2.6 G/DL (3.4-5.0); ALBUMIN/GLOBULIN RATIO 0.6 (1.1-1.5); ALKALINE PHOSPHATASE 92 IU/L (46-116); ANION GAP 6 (8-16); ASPARTATE AMINO TRANSFERASE 29 U/L (10-37); BILIRUBIN,TOTAL 0.9 MG/DL (0.1-1.0); BLOOD UREA NITROGEN 26 MG/DL (7-18); BUN/CREATININE RATIO 20.3 (5.4-32.0); CALCIUM 9.3 MG/DL (8.5-10.1); CHLORIDE 108 MMOL/L (99-107); CREATININE 1.28 MG/DL (0.60-1.10); GLUCOSE 148 MG/DL (70-104); POTASSIUM 4.3 MMOL/L (3.5-5.1); SODIUM 139 MMOL/L (135-145); TOTAL CARBON DIOXIDE 24.7 MMOL/L (24-32); TOTAL PROTEIN 6.9 G/DL (6.4-8.2); eGFR 57 ML/MIN
[2018-06-02 13:35] LABS: INR 1.3 INR; PARTIAL THROMBOPLASTIN TIME 26 SECONDS (22-32); PROTHROMBIN TIME 12.7 SECONDS (9.0-12.0)
[2018-06-02] MEDS ORDERED: LORazepam 1 MG tablet PO ONE (14:45)
[2018-06-02] MEDS ORDERED: aspirin 325mg tablet PO ONE (14:55)
[2018-06-02 15:44] LABS: CLARITY,URINE SLIGHTLY CLOUDY (Clear); COLOR,URINE YELLOW (Yellow); GLUCOSE, URINE NEGATIVE (Neg); KETONES,URINE NEGATIVE (Neg); LEUKOCYTE ESTERASE ,URINE MODERATE (Neg); NITRITES, URINE NEGATIVE (Neg); OCCULT BLOOD,URINE TRACE-INTACT (Neg); PROTEIN,URINE 30 mg/dl (Neg)
[2018-06-02] MEDS ORDERED: furosemide 10 MG/1 ML 10ml inj IV ONE (15:45)
[2018-06-02 15:56] LABS: URINE AMPHETAMINE SCREEN POSITIVE (Neg); URINE BARBITUATE SCREEN NEGATIVE (Neg); URINE BENZODIAZEPINES SCREEN NEGATIVE (Neg); URINE CANNABINOID SCREEN NEGATIVE (Neg); URINE COCAINE SCREEN NEGATIVE (Neg); URINE METHADONE SCREEN NEGATIVE (Neg); URINE OPIATE SCREEN POSITIVE (Neg); URINE PHENCYCLIDINE SCREEN NEGATIVE (Neg)
[2018-06-02 15:57] LABS: UA COLLECTION TYPE URINAL
[2018-06-02 16:04] LABS: WBC,URINE 20-30 /HPF (0-4)
[2018-06-02 16:09] LABS: RBC,URINE 0-2 /HPF (0-2)
[2018-06-02 16:10] LABS: BACTERIA,URINE FEW /HPF (Neg); MUCUS STRANDS MODERATE /LPF (Neg); SQUAMOUS EPITHELIAL CELL,UR MODERATE /LPF (FEW); TRANSITIONAL EPI CELLS,URINE FEW /HPF; WBC CLUMPS,URINE FEW /HPF (NEGATIVE)
[2018-06-02] MEDS ORDERED: FURO-149 PO (16:13)
[2018-06-02] MEDS ORDERED: carVEDilol 3.125mg tablet PO STA (18:15)
[2018-06-02] MEDS ORDERED: nitroGLYCERIN-Tridil 50MG/D5W 250 ML IV PRN (18:18)
[2018-06-02 19:33] VITALS: BP 139/83
--- NOTE | 2018-06-02 19:46 | NUR ---
pt adamant about leaving stating that he is not comfortable and will not say what will make him more comfortable. pt aware that he is sick and states he does not care, that he would rather be sick at home where he is more comfortable.. states "just get me the hell out of here!" at bedside trying to convince him to stay but he yelled at her to "shut up".
== END 2018-06-02 20:10 | disposition left against medical advice (07) ==
LOC: ER 12:45
DX: F15.20 Other stimulant dependence, uncomplicated (principal); I48.92 Unspecified atrial flutter; I11.0 Hypertensive heart disease with heart failure; I50.9 Heart failure, unspecified; I25.10 Atherosclerotic heart disease of native coronary artery without angina pectoris; Z56.0 Unemployment, unspecified; Z98.890 Other specified postprocedural states; Z88.1 Allergy status to other antibiotic agents; Z79.82 Long term (current) use of aspirin; Z79.899 Other long term (current) drug therapy
CPT/HCPCS: 36415; 71045; 74176; 80053; 80305; 81001; 83880; 84484; 85025; 85610; 85730; 87088; 93005; 96365; 96375; 99284; J1940; J3490